=== PATIENT | female | born 1965 | race Caucasian/White ===

== ENCOUNTER → 2020-11-07 12:53 | Outpatient (CLI) | payer OTHER, SELFPAY ==
[2020-11-07 13:09] VITALS: BP 135/60; PULSE 112; RESP 16; TEMP 36.4; O2SAT 98; BMI 39.1
[2020-11-07] MEDS: Acetaminophen 325 MG Tablet 650 MG PO (13:15)
[2020-11-07 13:53] VITALS: BP 127/61; PULSE 95; RESP 16; TEMP 36.6; O2SAT 98
[2020-11-07 14:50] VITALS: BP 137/63; PULSE 93; RESP 16; TEMP 36.6; O2SAT 98
[2020-11-07 15:30] VITALS: BP 144/71; PULSE 94; RESP 14; TEMP 36.7; O2SAT 99
== END ==
PROVIDERS: PCP Student in an Organized Health Care Education/Training Program; Referring Provider Internal Medicine Hematology & Oncology; Visit Provider Internal Medicine Hematology & Oncology
DX: C25.9 Malignant neoplasm of pancreas, unspecified (principal); D64.9 Anemia, unspecified
CPT/HCPCS: 36430; 86850; 86900; 86901; 86920; 86922; J7040; P9040

== ENCOUNTER → 2020-11-24 09:26 | Outpatient (CLI) | payer OTHER, SELFPAY ==
[2020-11-24] MEDS: Acetaminophen 325 MG Tablet 650 MG PO (09:59)
[2020-11-24] MEDS: 0.9% NaCl Peripheral Flush Adult/Peds IV ×2 (10:00→12:41)
[2020-11-24 10:04] VITALS: BP 111/56; PULSE 100; RESP 16; TEMP 35.8; O2SAT 98
[2020-11-24 10:36] VITALS: BP 99/52; PULSE 92; RESP 16; TEMP 35.8; O2SAT 94
[2020-11-24 11:36] VITALS: BP 109/61; PULSE 88; RESP 16; TEMP 35.8; O2SAT 98
[2020-11-24 12:35] VITALS: BP 126/68; PULSE 97; RESP 16; TEMP 35.9; O2SAT 98
== END ==
PROVIDERS: PCP Student in an Organized Health Care Education/Training Program; Referring Provider Internal Medicine Hematology & Oncology; Visit Provider Internal Medicine Hematology & Oncology
DX: D64.9 Anemia, unspecified (principal)
CPT/HCPCS: 36430; 86850; 86900; 86901; 86920; 86922; J7040; P9016; A4216

== ENCOUNTER → 2020-12-13 08:08 | Outpatient (CLI) | payer OTHER, SELFPAY ==
[2020-12-13] VITALS (7 sets, daily range): BP systolic 121–146; BP diastolic 59–72; PULSE 88–105; RESP 16; TEMP 36.2–36.8; O2SAT 95–100; BMI 36.1
[2020-12-13] MEDS: Acetaminophen 325 MG Tablet 650 MG PO (08:25)
[2020-12-13] MEDS: 0.9% NaCl VAD Flush IV ×2 (08:25→13:33)
== END ==
PROVIDERS: PCP Student in an Organized Health Care Education/Training Program; Referring Provider Internal Medicine Hematology & Oncology; Visit Provider Internal Medicine Hematology & Oncology
DX: Z51.89 Encounter for other specified aftercare (principal); K92.2 Gastrointestinal hemorrhage, unspecified; D64.81 Anemia due to antineoplastic chemotherapy
CPT/HCPCS: 36430; 86850; 86900; 86901; 86920; 86922; J7040; P9016; A4216

== ENCOUNTER 2021-04-23 08:01 | Outpatient (CLI) | payer OTHER, SELFPAY ==
[2021-04-23] MEDS: 0.9 % NaCl (Sterile) Posiflush 10 mL IV (08:10)
[2021-04-23] MEDS: Acetaminophen 325 MG Tablet 650 MG PO (08:12)
[2021-04-23 08:18] VITALS: BP 123/53; PULSE 94; RESP 16; O2SAT 100
[2021-04-23 08:23] VITALS: TEMP 36.4
[2021-04-23 08:38] VITALS: BP 113/55; PULSE 92; RESP 16; TEMP 37.2; O2SAT 100
[2021-04-23 09:38] VITALS: BP 122/49; PULSE 88; RESP 16; TEMP 37.1; O2SAT 100
[2021-04-23] MEDS: 0.9% NaCl VAD Flush IV (10:25)
== END 2021-04-23 23:59 | disposition home or self-care (01) ==
LOC: MEDOUTP 08:02
PROVIDERS: PCP Student in an Organized Health Care Education/Training Program; Referring Provider Internal Medicine Hematology & Oncology; Visit Provider Internal Medicine Hematology & Oncology
DX: Z51.89 Encounter for other specified aftercare (principal); D61.1 Drug-induced aplastic anemia; K92.2 Gastrointestinal hemorrhage, unspecified; D64.81 Anemia due to antineoplastic chemotherapy; T45.1X5A Adverse effect of antineoplastic and immunosuppressive drugs, initial encounter
CPT/HCPCS: 36430; 86850; 86900; 86901; 86920; 86922; J7040; P9040; A4216